=== PATIENT | female | born 1995 ===

== ENCOUNTER 2016-09-16 20:54 | Emergency (ER) | payer SELFPAY ==
[~2016-09-16] VITALS: Ht 152.4 cm; Wt 41.0 kg
[2016-09-16 20:56] VITALS: Ht 152.4 cm; Wt 41.0 kg
== END 2016-09-17 02:00 | disposition left against medical advice (07) ==
LOC: FTE 20:54
DX: Z53.21 Procedure and treatment not carried out due to patient leaving prior to being seen by health care provider (principal)